=== PATIENT | female | born 1970 | race Caucasian/White ===

== ENCOUNTER 2020-04-22 11:09 | Emergency (ER) | payer OTHER ==
[~2020-04-22] VITALS: Ht 152.4 cm; Wt 75.0 kg
[2020-04-22 13:46] LABS: HEPATITIS B SURFACE AB 3.4 mIU/mL
[2020-04-22 13:56] LABS: HEPATITIS B SURFACE ANTIGEN NEGATIVE
[2020-04-22 15:01] VITALS: BP 153/83
[2020-04-23 09:06] LABS: HIV SCREEN 4G Non Reactive (Non Reactive)
== END 2020-04-22 15:21 | disposition home or self-care (01) ==
LOC: ER 11:09
DX: S69.91XA Unspecified injury of right wrist, hand and finger(s), initial encounter (principal); X58.XXXA Exposure to other specified factors, initial encounter; Y93.89 Activity, other specified; Y92.89 Other specified places as the place of occurrence of the external cause; Y99.8 Other external cause status
CPT/HCPCS: 36415; 87340; 87389; 99283